=== PATIENT | male | born 1985 | race African-American/Black ===

== ENCOUNTER → 2018-10-04 | Outpatient (CLI) | payer OTHER ==
--- NOTE | 2018-10-05 08:04 | REP ---
Left hand series: Four views. History: Injury of the left hand. Laceration of the third digit. Findings: Four views of the left hand show overall normal mineralization. No fracture or opaque foreign body is appreciated. There is soft tissue swelling about the PIP joint of the long finger. Impression: No fracture or opaque foreign body seen. Electronically Signed by Berry Paredes MD 10/04/2018 06:22 P
== END ==
LOC: EDBD → M LRY 17:57
PROVIDERS: ATTEND Physician Assistant
DX: R22.32 Localized swelling, mass and lump, left upper limb (principal); S69.92XA Unspecified injury of left wrist, hand and finger(s), initial encounter; W23.1XXA Caught, crushed, jammed, or pinched between stationary objects, initial encounter; Y92.89 Other specified places as the place of occurrence of the external cause

== ENCOUNTER → 2018-10-04 | Outpatient (CLI) | payer OTHER | LOC: M LRY 18:16 | PROVIDERS: ATTEND Physician Assistant | DX: R22.32 Localized swelling, mass and lump, left upper limb (principal); S69.92XA Unspecified injury of left wrist, hand and finger(s), initial encounter; W23.1XXA Caught, crushed, jammed, or pinched between stationary objects, initial encounter; Y92.89 Other specified places as the place of occurrence of the external cause ==